=== PATIENT | female | born 1985 | race Caucasian/White ===

== ENCOUNTER 2017-08-28 16:26 | Emergency (ER) | payer MEDICAID, OTHER ==
[2017-08-28 19:15] LABS: URINE BLOOD (Dip) POC Negative (NEGATIVE); URINE KETONES (Dip) POC Trace (NEGATIVE); URINE LEUKOCYTE EST (Dip) POC Negative (NEGATIVE); URINE NITRITE (Dip) POC Negative (NEGATIVE); URINE TOTAL PROTEIN POC Negative (NEGATIVE)
[2017-08-28] MEDS: ONDANSETRON (ODT) 4 MG TAB ODT (19:21)
[2017-08-28] MEDS: MECLIZINE 12.5 MG TAB PO (19:21)
== END 2017-08-28 21:22 | disposition home or self-care (01) ==
LOC: FTE 16:26
DX: R42 Dizziness and giddiness (principal)
CPT/HCPCS: 70450; 81003; 99284-25